=== PATIENT | male | born 1980 | race Two or more races ===

== ENCOUNTER 2023-11-13 06:33 | Day surgery (SDC) | payer OTHER, SELFPAY ==
[2023-11-13] VITALS (10 sets, daily range): BP systolic 126–163; BP diastolic 78–108; BMI 32.1
[2023-11-13] MEDS: NORMOSOL-R/PLASMALYTE-A 1000 IV (09:10)
[2023-11-13] MEDS: TYLENOL 1000 MG PO (09:36)
--- NOTE | 2023-11-13 09:59 | W.SUR.PREOP ---
Pre-Operative Surgical Note
-
I have examined this patient prior to the performance of the scheduled procedure.
The patient's condition is unchanged from the time of the current History and
Physical and the patient is able to undergo the scheduled procedure.
--- NOTE | 2023-11-13 09:59 | HP.FOC2 ---
Focused History & Physical
Chief Complaint
HPI:
Chief Complaint: Umbilical hernia
HPI / Indication for Planned Procedure: This is a 42-year-old male who presents with a symptomatic umbilical hernia. Will proceed with a robotic umbilical hernia repair with mesh as planned.
Relevant Past Medical History: Hypertension
Relevant Social History: Negative
Relevant Family History: Negative
Relevant Past Surgical History: Negative
Review of Systems
Review of Pertinent Systems: All Systems Negative
Medication
See Medication form for detailed medications: Yes
Medication List (including Herbals & OTC):
albuterol sulfate 90 mcg/actuation aerosol inhaler 1 inh inhalation DAILY PRN SOB 11/06/23
amlodipine 2.5 mg tablet 2.5 mg PO HS 11/06/23
losartan 100 mg tablet 100 mg PO HS 11/06/23
prazosin 1 mg capsule 1 mg PO HS 11/06/23
quetiapine 25 mg tablet 25 mg PO HS 11/06/23
acetaminophen 325 mg tablet 650 mg (2 x 325 mg) PO Q6HPRN PRN mild pain #14 tabs 11/13/23
ibuprofen 600 mg tablet 600 mg PO Q6H PRN pain #14 tabs 11/13/23
tramadol 50 mg tablet 25 mg (1/2 x 50 mg) PO Q6HPRN PRN severe pain/breakthrough pain #12 tabs 11/13/23
Medications Reviewed: Yes
Allergies and Reactions
Patient has Allergies: No
Noted Allergies and Reactions:
Allergy/AdvReac Type Severity Reaction Status Date / Time
No Known Allergies Allergy Verified 11/13/23 09:28
Pertinent Physical Exam
All Other Systems: Negative
Head/Neck: Normal
Diagnosis / Assessment
42-year-old male with an umbilical hernia
Plan / Procedure
Robotic umbilical hernia repair with mesh.
Anesthesia/Sedation to be done by Anesthesia Provider: Yes
--- NOTE | 2023-11-13 12:22 | W.IMMPOSTOP ---
Surgical Immed Post Op Note
-
Primary Surgeon: Ryley Mckeon MD
Assisting Surgeon: None
Pre-op Diagnosis: Umbilical hernia
Post-op Diagnosis: Same
Procedure Performed: Robotic umbilical hernia repair with mesh
Anesthesia Type: General
Specimen / Cultures: None
Estimated Blood Loss: 3 cc
Complications: None
Operative Findings: 2 cm umbilical defect with an additional subcentimeter supraumbilical defect for total length of 4 cm long by 2 cm wide in the setting of a diastases recti. The repair was reinforced with a 12 x 12 cm Bard soft mesh in the
pre-transversalis space.
--- NOTE | 2023-11-13 12:24 | OR.RPT ---
Operative Report
Operative Report
Patient Name: Macho Simmons
: 1980
Date of Operation: 11/13/2023
Preoperative Diagnosis: Umbilical hernia
Postoperative Diagnosis: Same
Procedure(s):
Robotic umbilical hernia repair with mesh (RADHA approach)
Surgeon(s):
Dr. Mckeon
Flame Degreaser(s):
AL Finch
Anesthesia: General
Estimated Blood Loss: 3 cc
Urine Output: None
Drains/Lines/Implants:
12 x 12 cm round Bard soft mesh
Specimens:
None
HPI/Surgical Indications:
This is a 42-year-old male who was seen in my office for a symptomatic umbilical bulge and diagnosed with a reducible umbilical hernia. Risks/Benefits/Alternatives were discussed at length, and the patient agreed to proceed with surgery.
Operative Findings:
2 cm umbilical defect (containing preperitoneal fat) with an additional subcentimeter supraumbilical defect for total length of 4 cm long by 2 cm wide in the setting of a diastases recti. The repair was reinforced with a 12 x 12 cm Bard soft mesh
in the pre-transversalis space.
Procedure Description:
The patient was brought to the Operating Room and placed in the supine position with the arms tucked. IV antibiotics were infused and Venodyne stockings placed. Following uneventful induction of general endotracheal anesthesia, an orogastric tube
were placed. The abdomen was prepped and draped in the usual sterile fashion. The abdomen was entered using a Veress technique which required 1 pass, pneumoperitoneum to 15 mmHg was obtained without difficulty. An 8mm trochar was passed through
the abdominal wall roughly 20 cm laterally from the defect in the left upper quadrant, we then confirmed that no inadvertent injury was made while passing the trocar or Veress needle. We then placed two additional 8 mm ports in the left lower
quadrant. Bilateral tap blocks were performed. The robot was docked. We then introduced our prograsper through the inferior/left hand port and a monopolar scissors through the superior port. We then turned our attention to the hernia which had
no intra-abdominal contents. We then began taking a flap down roughly 6 cm away from the defect and roughly 12 cm in length taking care to stay in the pretransversalis plane. The preperitoneal fat was taken down off of the posterior rectus sheath
both superior and inferior to the hernia defect such that we were able to get our 'volcano sign'. We then worked on reducing the defect which contained preperitoneal fat and continued our dissection out laterally for an additional 6 to 7 cm. Once
our flap was created we introduced a ruler and a 0 V-Loc 180. The main hernia defect measured 2 cm, there was an additional defect less than 1 cm about 1 cm cephalad to this. The pocket measured 13 x 13 cm. I had my clinical services assistant cut a 12 x 12 cm
piece of Bard soft mesh marked with 0 Vicryl suture at the center, as I closed the umbilical defect in the longitudinal direction. The mesh was then sutured to the posterior rectus sheath in 4 quadrants with 2-0 vircyls to ensure good apposition. A
2-0 Monocryl was introduced which was used to close our flap. All sutures were removed. The robot was undocked. The ports were removed under direct visualization and pneumoperitoneum was evacuated. The port sites were closed with 4-0 Monocryl
followed by Dermabond. Counts were correct and overall, the patient tolerated the procedure well and was taken to the Recovery Room postoperatively in stable condition.
I was the attending physician and performed the procedure with assistance from the PA above. The assistance of Shayla Mendieta was required due to the complexity of the procedure. During the procedure Shayla assisted with exchanging instruments, needles
as well as the mesh, and closure of the wound. I was present for all portions of the case except for skin closure.
Ryley Mckeon MD
[2023-11-13] MEDS: SUBLIMAZE 50 MCG IV (12:52)
[2023-11-13] MEDS: MOTRIN 600 MG PO (14:30)
== END 2023-11-13 15:16 | disposition home or self-care (01) ==
LOC: SDS 06:33
PROVIDERS: ATTENDING PHYSICIAN Surgery
DX: K42.9 Umbilical hernia without obstruction or gangrene (principal)
CPT/HCPCS: 49591; C1781

== ENCOUNTER → 2023-12-31 12:55 | Outpatient (REF) | payer OTHER, SELFPAY | LOC: RAD 12:55 | PROVIDERS: ATTENDING PHYSICIAN Surgery; FAMILY PHYSICIAN Internal Medicine | DX: R10.33 Periumbilical pain (principal); Z09 Encounter for follow-up examination after completed treatment for conditions other than malignant neoplasm | CPT/HCPCS: 74176 ==

== ENCOUNTER → 2024-06-13 12:01 | Outpatient (REF) | payer OTHER, SELFPAY | LOC: MRI 3T 12:01 | PROVIDERS: ATTENDING PHYSICIAN Internal Medicine; PRIMARYCARE PHYSICIAN Family Medicine | DX: M54.12 Radiculopathy, cervical region (principal) | CPT/HCPCS: 72141 ==